=== PATIENT | female | born 1995 | race Caucasian/White ===

== ENCOUNTER 2024-01-25 10:05 | Emergency (ER) | payer MEDICARE, SELFPAY ==
[2024-01-25 10:25] VITALS: BP 114/77
[2024-01-25 11:45] VITALS: BMI 40.1
--- NOTE | 2024-01-25 11:57 | ED.GENMED ---
History of Present Illness
General
Chief Complaint: Facial Problem
Source: patient
Exam Limitations: none
Time Seen by Provider: 01/25/24 11:24
Nursing documentation reviewed up to this point in time: agreed with
History of Present Illness
History of Present Illness:
28 yr old female presents to the ER for evaluation. Patient reports she was sent by her employer. 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 She reports she only has very
minimal discomfort and feels like a bruise and she would not of come however her work wanted her to do so.
Past History
Past History
ED Past Medical History: Asthma, Seizures, Psychiatric (Bipolar disorder) and Other (Cyclic vomiting syndrome, migraines, Abd blockages, Ileitis)
ED Past Surgical History: None
Social History
Tobacco: Smoker
Alcohol: None
Drug: None
Personal: Single
Living: with family
Employment: Student
Family History
Family History: Other (Noncontributory)
Review of Systems
Review of Systems
Allergies reviewed?: Yes
All Other Systems: ROS reviewed and negative except as documented in HPI and ROS
Constitutional: Reports no symptoms
EENT: Reports no symptoms
Musculoskeletal: Reports other (right face is sore )
Skin: Reports no symptoms
Neurological: Reports no symptoms
Psychiatric: Reports no symptoms
Phy Exam
General Physical Exam
General Presentation: no apparent distress
General age: appears stated age
General Skin: warm and dry
General Habitus: normal
General Mental: alert
General Hydration: appears well hydrated
General Chronic Disability: tracheostomy
ENT Exam
ENT Exam: other (right face with no swelling no erythema no ecchymosis /no abrasions very minimal tenderness to right mandible/maxilla no misalignment of teeth able to open mouth drooling or trismus)
Neurological Exam
Neurological Exam: alert and oriented x3
Musculoskeletal Exam
Musculoskeletal Exam: full ROM
Skin Exam
Skin Exam: normal color and warm/dry
Psychiatric Exam
Psychiatric Exam: normal mood/affect
Course
Vital Signs
Initial and Last Documented VS:
Initial Vital Signs
Temp Pulse Resp BP Pulse Ox
97.8 F 76 18 114/77 96
01/25/24 10:25 01/25/24 10:25 01/25/24 10:01/25/24 10:01/25/24 10:25
Last Documented Vital Signs
Temp Pulse Resp BP Pulse Ox
97.8 F 76 18 114/77 96
01/25/24 10:25 01/25/24 10:25 01/25/24 10:25 01/25/24 10:01/25/24 10:25
MDM/Problems Addressed
Differential Diagnosis Includes:
Not limited to fracture versus contusion
MDM/Problems Addressed:
Symptoms are consistent with contusion. Patient reports her work did send her here to the ER otherwise she would not of come and she reports area of her right face is only very minimally sore very minimally tender on exam she opens her mouth freely
symptoms are consistent most likely with contusion. Patient does not want an x-ray here in the ER this is reasonable as she has minimal pain and discomfort
*Critical Care Note
Total Time (30-74mins, 75-104mins- exclusive of procedures): Not Applicable
ED Attending Note
-
Portions of this chart may have been created with voice recognition software.� Occasional wrong word or��sound alike� substitutions may have occurred due to the inherent limitations of voice recognition software.
Discharge Plan
Departure
Patient Disposition: Home (Routine Discharge)
Date of Disposition: 01/25/24
Time of Disposition: 11:53
Patient with high blood pressure during this ER visit?: No
Condition: Fair
Covid-19: Not Applicable
Discharge Problem:
Contusion
Instructions: Contusion
Prescriptions:
No Action
sertraline 50 MG tablet
200 mg PO DAILY
amitriptyline 50 MG tablet
50 mg PO DAILY
ondansetron 4 MG tablet,disintegrating
4 mg PO Q8HPRN PRN (Reason: Nausea/Vomiting) Qty: 10 0RF
diazepam 10 MG tablet
10 mg PO PRN PRN (Reason: seizure)
lamotrigine 100 MG tablet
150 mg PO BID
Bupropion HCl
75 mg PO DAILY
albuterol sulfate 1 PUFF HFA aerosol inhaler
1 puff inhalation PRN PRN (Reason: asthma)
metformin 500 MG tablet
500 mg PO BID
Referrals:
Bc Bo MD [Family Provider] -
Activity Restrictions/Additional Instructions:
Ice affected area as needed. tylenol or Ibuprofen as needed
Follow up with work health as needed. Return if any worsening of symptoms
Interventions
Interventions:
*Risk Screen - Suicide Last Done: 01/25/24 10:25
*Neglect/Abuse Screening Last Done: 01/25/24 10:25
ED- Fall Risk Assessment Last Done: 01/25/24 11:45
*ED COVID-19 Vaccine History Last Done: 01/25/24 10:25
*Nursing Disposition Last Done: 01/25/24 12:22
ED- Neurological Assessment Last Done: 01/25/24 11:45
ED-Skin Assessment Last Done: 01/25/24 11:45
Discharge Date and Time
Discharge Date/Time: 01/25/24 12:23
Print Language: GREENLANDIC
== END 2024-01-25 12:23 | disposition home or self-care (01) ==
LOC: EMR 10:05
PROVIDERS: EMERGENCY PHYSICIAN Emergency Medicine; FAMILY PHYSICIAN Family Medicine
DX: S09.93XA Unspecified injury of face, initial encounter (principal); W20.8XXA Other cause of strike by thrown, projected or falling object, initial encounter; Y99.0 Civilian activity done for income or pay; J45.909 Unspecified asthma, uncomplicated; G40.909 Epilepsy, unspecified, not intractable, without status epilepticus; F31.9 Bipolar disorder, unspecified; R11.15 Cyclical vomiting syndrome unrelated to migraine; F17.200 Nicotine dependence, unspecified, uncomplicated
CPT/HCPCS: 99282